=== PATIENT | male | born 1955 | race Caucasian/White ===

== ENCOUNTER → 2021-05-30 08:23 | Outpatient (CLI) | payer MEDICARE, OTHER, SELFPAY ==
[2021-05-30 09:44] LABS: BUN Creatinine Ratio 12.4 (6-22); Blood Urea Nitrogen 12 mg/dL (9-20); Estimated Glomerular Filt Rate > 60.0 mL/min (>60)
== END ==
PROVIDERS: PCP Family Medicine; Referring Provider Surgery; Visit Provider Surgery
DX: R11.0 Nausea (principal)
CPT/HCPCS: 36415; 82565; 84520

== ENCOUNTER → 2021-06-03 10:06 | Outpatient (CLI) | payer MEDICARE, OTHER, SELFPAY ==
--- NOTE | 2021-06-03 10:09 | DI.RAD.S_ITS ---
PROCEDURE: XR CHEST 2V INDICATIONS: cough TECHNIQUE: 2 views of the chest were acquired. COMPARISON: None. FINDINGS: Surgical changes and devices: None. Lungs and pleura: Linear density in the left lower lung zone, which may reflect atelectasis. The remaining lung zones are well aerated. No pleural effusions or pneumothorax. Mediastinum: Mediastinal contours are normal. Heart size is normal. Bones and chest wall: No suspicious bony abnormalities. Soft tissues appear unremarkable. IMPRESSION: Left basilar plate atelectasis. Dictated by: Zacarias Rudolph M.D. on 06/03/2021 at 10:35 Approved by: Zacarias Rudolph M.D. on 06/03/2021 at 10:37
--- NOTE | 2021-06-03 10:43 | DI.CT.S_ITS ---
PROCEDURE: CT ABDOMEN PELVIS W CON INDICATIONS: Nausea, Hernia TECHNIQUE: After the administration of oral and IV contrast, axial sections were acquired from the lung bases to the pubic symphysis. Coronal and sagittal reformats were performed. For radiation dose reduction, the following was used: automated exposure control, adjustment of mA and/or kV according to patient size. COMPARISON: [facility], CT, ABDOMEN/PELVIS WITH CONTRAST, 04/12/2016, 22:58. FINDINGS: Image quality: Excellent. Lower thorax: Bi basilar atelectasis. Partially imaged hiatal hernia with patulous distal esophagus. Heart: No significant findings. ABDOMEN: Liver: Decreased attenuation of liver, compatible with hepatic steatosis. 1.6 cm hypoattenuating lesion in the posterior right hepatic lobe, which may reflect a cyst or hemangioma. Gallbladder: Cholecystectomy. Biliary ducts: Unremarkable. Pancreas: Unremarkable. Spleen: Normal contour. Enlarged, measuring up to 14.1 cm. Adrenal Glands: Unremarkable. Kidneys and Ureters: Unremarkable. Stomach and Bowel: No evidence of intestinal obstruction. Sigmoid diverticulosis with wall thickening, compatible with diverticulitis. Peritoneum: No abnormal intraperitoneal fluid. No free air. Ventral Wall: A colon containing ventral hernia is seen with defect measuring 4.8 cm. An additional fat containing left ventral hernia seen with defect measuring 1.5 cm. Abdominal Nodes: No retroperitoneal or mesenteric adenopathy by size criteria. Vessels: Aorta and inferior vena cava are normal in size. PELVIS: Pelvic Organs: Enlargement of the prostate, measuring 4.2 cm in transverse dimension. Bladder: Indentation of the urinary bladder secondary to the enlarged prostate. Pelvic Nodes: No enlarged lymph nodes. Miscellaneous: A fat containing right inguinal hernia with defect measuring 1.9 cm. Bones: Unremarkable. IMPRESSION: 1. Sigmoid diverticulitis. 2. Mild splenomegaly. 3. Ventral hernias as detailed above. 4. Persistent hiatal hernia with patulous distention of the distal esophagus. Dictated by: Zacarias Rudolph M.D. on 06/03/2021 at 12:59 Approved by: Zacarias Rudolph M.D. on 06/03/2021 at 13:11
== END ==
PROVIDERS: PCP Family Medicine; Referring Provider Surgery; Visit Provider Surgery
DX: R05.9 Cough, unspecified (principal); J98.11 Atelectasis; R11.0 Nausea; K57.32 Diverticulitis of large intestine without perforation or abscess without bleeding; K40.90 Unilateral inguinal hernia, without obstruction or gangrene, not specified as recurrent; R16.1 Splenomegaly, not elsewhere classified; K44.9 Diaphragmatic hernia without obstruction or gangrene; Z90.49 Acquired absence of other specified parts of digestive tract
CPT/HCPCS: 71046; 74177

== ENCOUNTER → 2021-06-04 10:57 | Outpatient (CLI) | payer MEDICARE, OTHER, SELFPAY ==
[2021-06-04 14:14] LABS: COVID19 -Nasal RAPID Negative (Negative)
== END ==
PROVIDERS: PCP Family Medicine; Visit Provider Surgery
DX: Z01.812 Encounter for preprocedural laboratory examination (principal); Z20.822 Contact with and (suspected) exposure to COVID-19
CPT/HCPCS: 87635; C9803

== ENCOUNTER 2021-06-05 08:29 | Day surgery (SDC) | payer MEDICARE, OTHER, SELFPAY ==
[2021-06-05] VITALS (8 sets, daily range): BP systolic 107–140; BP diastolic 65–83; PULSE 48–59; RESP 12–16; TEMP 36.3–36.5; O2SAT 93–96; BMI 29.4
--- NOTE | 2021-06-05 | PATH_ITS ---
[facility] Accession Number: [id number] . 01 Material submitted: . gastrointestinal site - RANDOM BIOPSY OF ANTRUM . 02 Diagnosis: Random Biopsy of Antrum: Portions of gastric antral mucosa with chronic gastritis. Negative for Helicobacter organisms by immunohistochemistry. Negative for intestinal metaplasia. Negative for dysplasia or malignancy. MRV 06/11/2021 1211 Local . 02 Electronically signed: . Vanesa Ardon MD, Pathologist NPI- [id number] . 01 Gross description: . RANDOM BIOPSY OF ANTRUM: Received in formalin are 5 fragment(s) of khan, soft tissue measuring 0.5 x 0.1 x 0.1 cm to 0.4 x 0.2 x 0.1 cm submitted entirely in 1 cassette(s) /ANA 06/06/2021 0418 Local . 02 Microscopic: . A. An immunohistochemical stain was performed to evaluate for Helicobacter organisms and is negative. The control stain showed appropriate reactivity. . * This test was developed and its performance characteristics determined by [facility]. It has not been cleared or approved by the U.S. Food and Drug Administration. The FDA has determined that such clearance or approval is not necessary. This test is used for clinical purposes. It should not be regarded as investigational or for research. . 02 Pathologist provided ICD-10: K22.70 . 02 CPT . 469804, [id number] Performed at: 01 [facility] Cytology [address] [facility], [place], [place] [id number] MD Kenrick Vargas MD Phone: [phone] Performed at: 02 [facility] [place] [address] [place], [place] [id number] MD Alyce Toledo MD Phone: [phone]
[2021-06-05] MEDS: LACTATED RINGERS 1,000 ML 42 ML IV (09:12)
--- NOTE | 2021-06-05 10:16 | PM.PREOP ---
Pre-operative Note COVID-19 COVID-19 status: Negative Result date/Date tested (Pos, Neg/Pending): 06/05/21 Interval Note History & Physical reviewed/Exam performed by Physician: Yes Changes to H&P: No ASA Class (for procedural sedation): II
[2021-06-05] MEDS: LIDOCAINE 4% SOLN 50 ML 20 ML TOP (10:20)
[2021-06-05] MEDS: fentaNYL 250 MCG/5 ML INJ IV (10:21)
[2021-06-05] MEDS: MIDAZOLAM 5 MG/5 ML VIAL IV (10:33)
--- NOTE | 2021-06-05 10:36 | PM.OP.EGD ---
Operative Date/Time/Diagnoses Date of procedure: 06/05/21 Time of procedure: 10:36 Pre-op diagnosis: History of Bee's esophagus Post-op diagnosis: same Procedure & Clinicians Study performed: Esophagogastroduodenoscopy Same procedure as scheduled: Yes Indications: History of Bee's esophagus Surgeon: Alonzo Main Procedure Notes SCOAP/Timeout: Performed Procedure in detail: The patient was brought to the endoscopy suite placed in left lateral decubitus position and connected to vital sign monitors. A bite block was placed. A time-out was performed. Conscious sedation with was administered with Versed and fentanyl a total of 50 the micro g of fentanyl and 5 mg of Versed were administered. The endoscope was inserted and advanced to the duodenum which was normal. The mucosa was inspected as the scope was withdrawn into the stomach. There was some mild gastric antritis and random biopsies were taken from the antrum. The scope was retroflexed in the stomach. The stomach was rather narrow but no mucosal abnormalities were noted. On retroflexion the hiatal hernia no was noted. The hiatal hernia was rather large measuring greater than 5 cm. The scope was withdrawn into the hiatal hernia and then into the distal esophagus. The Z-line was noted. There were no mucosal abnormalities seen. The rest of the esophagus was rather short in length. The scope was withdrawn and the patient was awakened and brought to recovery room. Findings: gastritis and hiatal hernia Specimen(s): other (Antrum) Complications: none Impression: Known hiatal hernia without mucosal lesions. Mild gastric antritis. Post-procedure Recommendations: Will call with biopsy results Follow up: as needed Disposition: PACU
== END 2021-06-05 11:38 | disposition home or self-care (01) ==
PROVIDERS: PCP Family Medicine; Referring Provider Surgery; Visit Provider Surgery
PROC: 0DJ08ZZ Inspection of Upper Intestinal Tract, Via Natural or Artificial Opening Endoscopic (ICD-10-PCS; CPT 43235; principal; 2021-06-05 09:45)
DX: K29.50 Unspecified chronic gastritis without bleeding (principal); K44.9 Diaphragmatic hernia without obstruction or gangrene
CPT/HCPCS: 43239; J2250; J3010

== ENCOUNTER → 2021-06-11 15:27 | Outpatient (CLI) | payer MEDICARE, OTHER, SELFPAY ==
--- NOTE | 2021-06-16 16:36 | DIET.PN1 ---
Addendum entered by Bijal Souza 07/07/21 13:34: Pt seen by RD on Wed, Jun 11, 2021- date previously indicated was calendar mistake. Addendum entered by Bijal Souza 06/16/21 16:44: Pt seen by RD on , Jun 12, 2021, note completed following weekend. Original Note: Dietary Progress Note Assessment: 66y M attending nutrition visit for help with nausea, vomiting, and diarrhea. Pt has strong family hx GERD and peptic ulcers (pts father), pt had terrible GERD whole life with frequent vomiting. Had Donnie fundoplication at many years ago with good results. Pt at that time had Barretts esophagus. Pts current sx have been occurring over the past 2 years: has been vomiting bile in the morning without pattern related to food intake, no vomiting of food particles or pills. Also has been experiencing diarrhea past 1.5y: looks like soft, unformed cowpie usually in the morning with some urgency. B: cheerios c almond milk sometimes cup coffee c organic sugar and creamer Sn: sometimes cookies or chips L: half sandwich- slider c sweet roll c meat, mckay, lettuce, D: Pt and spouse eat out frequently, about 50% of time-Armand Jean sandwich or small Mod pizza and salad. 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 Pt with recent imaging showing gastritis with tissue samples taken to assess for h. pylori infection. RD Impression: Pts diarrhea onset corresponds to his change of PPI from once daily to bid (second dose before bed). Upon review of drug food interactions, diarrhea is common with this medication. Recc pt work with GI to adjust medications to assess for resolving diarrhea. Pt has good understanding of food triggers when it comes to GERD, however pts diet still high in dietary fat from animal sources. Recc pt cut back on these foods to see if nausea lessens, potentially could assist single dose of PPI to cover sx. Nutrition Diagnosis: high intake dietary fat r/t reliance on meals eaten outside the home aeb pt with hx GERD and Donnie fundoplication, pt reports 50% of dinners are outside of home including dairy, fatty meats. Interventions: 1. Recc pt and spouse cook dinners at home more frequently, or choose meals out from establishments that cook from scratch, choosing lower animal fat products (fatty meat/cheese/fried foods). Electronically Signed by: Bijal Souza 06/16/21 16:36 Clinical Dietitian [address] [address]
== END ==
PROVIDERS: PCP Family Medicine; Referring Provider Family Medicine; Visit Provider Family Medicine
DX: K21.9 Gastro-esophageal reflux disease without esophagitis (principal); Z71.3 Dietary counseling and surveillance
CPT/HCPCS: 97802

== ENCOUNTER → 2021-09-30 13:11 | Outpatient (CLI) | payer MEDICARE, OTHER, SELFPAY ==
[2021-09-30 14:40] LABS: Prostate Specific Antigen Scrn 1.81 ng/mL (0.1-4.0)
== END ==
PROVIDERS: PCP Family Medicine; Referring Provider Urology; Visit Provider Urology
DX: Z12.5 Encounter for screening for malignant neoplasm of prostate (principal); R35.1 Nocturia; R39.9 Unspecified symptoms and signs involving the genitourinary system
CPT/HCPCS: 36415; 51798; 81002; 99213; G0103

== ENCOUNTER → 2025-01-31 09:31 | Outpatient (CLI) | payer MEDICARE, OTHER, SELFPAY ==
--- NOTE | 2025-01-31 09:33 | DI.RAD.S_ITS ---
PROCEDURE: XR CHEST 2V INDICATIONS: COUGH TECHNIQUE: 2 views of the chest were acquired. COMPARISON: [facility], CR, XR CHEST 2V, 06/03/2021, 10:05. FINDINGS: Heart, mediastinum and pulmonary vascular: Heart is normal in size and configuration. Mediastinum is unremarkable. Pulmonary vascular is normal. Lungs: Small infiltrate in the inferior right lower lobe partially obscures the diaphragm. This is a new finding Pleural spaces: Normal-no effusions or pneumothorax. Mild right diaphragm elevation Bones and soft tissues: There appears to be a moderate hernia of the right mid anterior abdominal wall which contains bowel. It is incompletely imaged IMPRESSION: Small right lower lobe pneumonia . Right anterior abdominal wall hernia incompletely imaged. Dictated by: Paul Jacques M.D. on 02/01/2025 at 12:40 Approved by: Paul Jacques M.D. on 02/01/2025 at 12:42
== END ==
LOC: RAD 09:32
PROVIDERS: PCP Family Medicine; Referring Provider Family Medicine; Visit Provider Family Medicine
DX: J18.9 Pneumonia, unspecified organism (principal); K43.9 Ventral hernia without obstruction or gangrene; R05.1 Acute cough
CPT/HCPCS: 71046

== ENCOUNTER → 2025-03-02 08:51 | Outpatient (CLI) | payer OTHER, SELFPAY ==
--- NOTE | 2025-03-02 08:52 | DI.CT.S_ITS ---
PROCEDURE: CT ABDOMEN PELVIS W CON INDICATIONS: incisional hernia TECHNIQUE: After the administration of intravenous contrast, axial sections acquired from the lung bases to the pubic symphysis. Coronal and sagittal reformats were performed. For radiation dose reduction, the following was used: automated exposure control, adjustment of mA and/or kV according to patient size. COMPARISON: [facility], CR, XR CHEST 2V, 01/31/2025, 9:33. [facility], CT, CT ABDOMEN PELVIS W CON, 06/03/2021, 11:11. FINDINGS: Image quality: Diagnostic. Lower Chest: Masslike consolidation in lateral aspect of right lung base is seen with adjacent atelectasis. No pleural effusion. Heart size is mildly enlarged, no pericardial effusion. Moderate size hiatal hernia is seen. ABDOMEN: Liver: No solid mass. Gallbladder: Gallbladder is surgically absent. A lobulated thick walled septated fluid collection is noted in right upper quadrant inferior and posterior to right lobe of liver and appears to be communicating with gallbladder fossa measures up to 6.9 x 4.5 x 8.5 cm in its largest transverse, AP and craniocaudal dimensions series 2, image 31 and series 8, image 77. Biliary ducts: No biliary dilation. Pancreas: No ductal dilation. Spleen: There is splenomegaly. No discrete splenic lesion. Adrenal Glands: No adrenal nodules. Kidneys and Ureters: No hydronephrosis. No solid mass. No complex renal cystic lesion which requires follow up. Stomach and Bowel: There is no bowel obstruction or abnormal bowel wall thickening. No abscess collection. Sigmoid diverticulosis without CT evidence of acute diverticulitis. Peritoneum: No abnormal intraperitoneal fluid. No free air. Ventral Wall: There is rectus diastasis with moderate to large ventral hernia containing a long segment of transverse colon loop. No incarceration or strangulation. Left rectus abdominus muscle defect with small incisional hernia containing fat only. Abdominal Nodes: No retroperitoneal or mesenteric adenopathy by size criteria. Vessels: Aorta and inferior vena cava are normal in size. PELVIS: Pelvic Organs: Unremarkable. Bladder: No bladder wall thickening, accounting for underdistention. Pelvic Nodes: No enlarged lymph nodes. Miscellaneous: No inguinal hernias are seen. Bones: No aggressive osseous abnormality. IMPRESSION: 1. Moderate to large size ventral hernia containing transverse colon. No evidence of incarceration. Left rectus abdominus muscle defect with small incisional hernia containing fat only. 2. No bowel obstruction or abnormal bowel wall thickening. No free fluid or free air. Colonic diverticulosis without CT evidence of acute diverticulitis. 3. Thick walled lobulated and septated fluid collection seen in right upper quadrant posterior inferior to right hepatic lobe and appears to be communicating with gallbladder fossa concerning for bile leak and biloma formation. Abscess collection cannot be excluded. Clinical correlation is recommended. 4. Masslike consolidation seen in lateral aspect of right lung base likely represent right lower lobe infiltrate versus atelectasis. Developing empyema cannot be excluded. Clinical correlation and follow-up is recommended. 5. Splenomegaly, no discrete splenic lesion. Dictated by: Jc Ferguson M.D. on 03/03/2025 at 23:07 Approved by: Jc Ferguson M.D. on 03/03/2025 at 23:18
[2025-03-02 09:19] LABS: Estimated Glomerular Filt Rate > 60 mL/min (>60)
== END ==
PROVIDERS: PCP Family Medicine; Referring Provider Surgery; Visit Provider Surgery
DX: K43.2 Incisional hernia without obstruction or gangrene (principal); K43.7 Other and unspecified ventral hernia with gangrene; M62.08 Separation of muscle (nontraumatic), other site; R91.8 Other nonspecific abnormal finding of lung field; K44.9 Diaphragmatic hernia without obstruction or gangrene; R16.1 Splenomegaly, not elsewhere classified; I51.7 Cardiomegaly; K57.30 Diverticulosis of large intestine without perforation or abscess without bleeding; Z90.49 Acquired absence of other specified parts of digestive tract
CPT/HCPCS: 36415; 74177; 82565; Q9967

== ENCOUNTER 2025-04-10 11:35 | Day surgery (SDC) | payer OTHER, SELFPAY ==
--- NOTE | 2025-04-10 | PATH_ITS ---
[facility] Accession Number: [id number] No. of containers..01 Tissue . 01 Material submitted: . colon - COLON, SIGMOID POLYP . 01 Diagnosis: COLON, SIGMOID POLYP: Hyperplastic polyp. [facility] 04/18/20251525 Local . 01 Electronically signed: . Kenrick Vargas MD, Pathologist NPI- [id number] . 01 Gross description: . Received in formalin with two identifiers and 1. Sigmoid polyp. The specimen consists of one khan-white soft tissue fragment measuring 0.5 x 0.4 x 0.3 cm. The specimen is entirely submitted in cassette A1. ([id number]) /MRV 04/18/20251525 Local . 01 Pathologist provided ICD-10: K63.5 . 01 CPT . 866533 Specimen Comment: A courtesy copy of this report has been sent to [facility] Pathology Performed at: [address] [facility] [address], [place], [place] [id number] MD Kenrick Vargas MD Phone: [phone]
[2025-04-10 12:01] VITALS: BP 118/68; PULSE 50; RESP 16; TEMP 36.2; O2SAT 99
--- NOTE | 2025-04-10 12:10 | PM.HP.IH.1 ---
History of Present Illness History of Present Illness Date Patient Seen: 04/10/25 Time Patient Seen: 12:10 Chief complaint: Screening Colonoscopy Narrative: 69yo M, h/o colon polyps, on 5 year screening schedule. Negative FH for colon ca. [facility] Medical History (Updated 02/28/25 @ 15:55 by Grupo Monge MD) Hyperlipemia Hypothyroid Bee's esophagus Secondhand smoke exposure Nocturia Surgical History History of cholecystectomy History of appendectomy Family History Mother Cancer Hyperlipidemia Father Cancer Sister Hyperlipidemia Brother Kidney stones Social History marital status: number of children: 2 household members: friend(s) occupational status: other Smoking Status: Never smoker alcohol intake: current caffeine: Yes Meds Home Medications and Allergies Home Medications ?Medication ?Instructions ?Recorded ?Confirmed ?Type levothyroxine 75 mcg capsule 75 mcg PO DAILY 03/20/21 04/10/25 History pravastatin 20 mg tablet 20 mg PO DAILY 03/20/21 04/10/25 History tamsulosin 0.4 mg capsule (Flomax) 0.4 mg PO DAILY 03/20/21 04/10/25 History omeprazole 20 mg capsule,delayed 20 mg PO BID 04/04/21 04/10/25 History release Allergies Allergy/AdvReac Type Severity Reaction Status Date / Time hydromorphone (From DILAUDID) AdvReac Unknown Nausea and Verified 04/10/25 11:58 vomiting Exam Vital Signs (past 8 hours): - 04/10/25 12:01 Temperature 97.1 F L Pulse Rate 50 L Respiratory Rate 16 Blood Pressure 118/68 Pulse Oximetry 99 Oxygen Delivery Method Room Air Oxygen Delivery Method Room Air Const General: comfortable Orientation: alert and oriented x3 Resp Effort & Inspection: normal respiratory effort and able to speak in complete sentences Cardio Rate: regular rate GI Palpation: soft (NT, large ventral hernia) Extrem General: no pedal edema and no calf tenderness Assessment & Plan Assessment and plan (1) Encounter for screening colonoscopy: Status: Acute Plan Colonoscopy, possible biopsy. The risks, benefits and options regarding the procedure were explained to the patient in detail. Risk discussion included but not limited to: bleeding, perforation, unable to reach cecum, missed lesion. The patient was encouraged to ask questions and they were answered to their satisfaction. The patient understands and is agreeable to proceed. Time-Based Coding :: [TOTAL MINUTES] spent with patient and on the chart (including review of chart, obtaining history, exam, reviewing outside data, placing orders, documenting exam and treatment plan, and counseling patient) on [DATE]. PROFEE Mathematics Technician Document charge(s): Yes Charge Codes Inpatient/observation care including admit and discharge same day: [id number]
[2025-04-10] MEDS: LACTATED RINGERS 1,000 ML 42 ML IV (12:15)
[2025-04-10 12:51] VITALS: BP 98/54; PULSE 55; RESP 16; TEMP 36.5; O2SAT 96
--- NOTE | 2025-04-10 12:53 | P.OP.COLON_ITS ---
Operative Date/Time/Diagnoses Date of procedure: 04/10/25 Time of procedure: 12:53 Pre-op diagnosis: H/O colon polyps, due for 5 year exam Post-op diagnosis: other (Sigmoid polyp) Procedure & Clinicians Study performed: Colonoscopy with biopsy Same procedure(s) as scheduled: Yes Indications: 69yo M with h/o polyps, due for 5 year exam. Denies FH for colon cancer. Surgeon: Grupo Monge Anesthesia Type: MAC +/- Procedure Notes SCOAP/Timeout: Performed Procedure in detail: Colonoscopy Patient placed in left lateral recumbent position. Time out was performed. Procedural sedation was administered by anesthesia. Examination began with a thorough inspection of the perianal area. There was no evidence of fissures, fistulae, external hemorrhoids or cutaneous malignancy. The colonoscope was then placed into the rectum and the lumen was insufflated with carbon dioxide. The scope was carefully advanced forward. Ultimately the cecum was intubated and confirmed by identification of the ileocecal valve, the appendiceal orifice and the confluence of the taenia. The scope was then slowly withdrawn examining the colon thoroughly in all directions. In the rectum, retroflexion of the scope was performed for inspection of the distal rectum and anal canal. ?Significant colonoscopy findings: ?1. Quality of the preparation-good, [place] 2-3, improved with irrigation/suction ?2. Single, 3mm sessile polyp in distal sigmoid, cold biopsy taken, clip applied to control oozing 3. Sigmoid diverticulosis 4. Large internal hemorrhoids, may be connected to externals Findings: divertiulosis, internal hemorrhoids and polyp(s) Specimen(s): other (polyp) Complications: none Impression: Single sigmoid polyp removed, await path Sigmoid diverticulosis Large internal hemorrhoids, may be extension of externals Post-procedure Recommendations: Colonoscopy in 10 years Plan for aftercare: PACU then home Follow up: as needed Disposition: PACU
[2025-04-10 12:55] VITALS: BP 97/54; PULSE 55; RESP 16; O2SAT 97
[2025-04-10 13:00] VITALS: BP 96/54; PULSE 47; RESP 16; TEMP 36.4; O2SAT 97
[2025-04-10 13:05] VITALS: BP 106/58; PULSE 47; RESP 16; O2SAT 99
[2025-04-10 13:12] VITALS: BP 121/61; PULSE 50; RESP 16; TEMP 36.4; O2SAT 97
== END 2025-04-10 13:16 | disposition home or self-care (01) ==
PROVIDERS: PCP Family Medicine; Referring Provider Family Medicine; Visit Provider Surgery
PROC: 0DJD8ZZ Inspection of Lower Intestinal Tract, Via Natural or Artificial Opening Endoscopic (ICD-10-PCS; CPT 45378; principal; 2025-04-10 13:00)
DX: Z12.11 Encounter for screening for malignant neoplasm of colon (principal); Z86.0100 Personal history of colon polyps, unspecified; K57.30 Diverticulosis of large intestine without perforation or abscess without bleeding; K64.8 Other hemorrhoids; E78.5 Hyperlipidemia, unspecified; E03.9 Hypothyroidism, unspecified; K22.70 Barrett's esophagus without dysplasia; N40.0 Benign prostatic hyperplasia without lower urinary tract symptoms; K63.5 Polyp of colon
CPT/HCPCS: 45380; J2704; J2765